=== PATIENT | female | born 1950 | race Asian ===

== ENCOUNTER 2017-09-13 10:50 | Outpatient (CLI) | payer MEDICARE ==
--- NOTE | 2017-09-15 18:23 | Mammography Report ---
DIGITAL SCREENING MAMMOGRAM: 09/13/2017 CLINICAL INDICATION: A 67-year-old for screening. COMPARISON: 04/2016, 10/2014, 06/2013, 05/2011, 03/2010. TECHNIQUE: Routine CC and MLO projections were obtained of the breasts. FINDINGS: The breasts demonstrate heterogeneously dense fibroglandular parenchyma bilaterally. Coarse, typically benign calcifications are present. No suspicious masses, clustered microcalcifications, or regions of architectural distortion are identified. IMPRESSION: BENIGN FINDINGS. RECOMMENDATION: ROUTINE ANNUAL SCREENING UNLESS OTHERWISE CLINICALLY INDICATED. BIRADS category 2 benign findings. STANDARD QUALIFYING STATEMENTS 1. This examination was reviewed with the aid of Computed-Aided Detection (CAD). 2. A negative or benign imaging report should not delay biopsy if clinically suspicious findings are present. Consider surgical consultation if warranted. More than 5% of cancers are not identified by imaging. 3. Dense breasts may obscure an underlying neoplasm. TD: 09/15/2017 18:22
== END 2017-09-13 10:51 | disposition home or self-care (01) ==
LOC: DI.N 10:50
PROVIDERS: ATTEND Physician Assistant Medical
DX: Z12.31 Encounter for screening mammogram for malignant neoplasm of breast (principal)
CPT/HCPCS: 77067

== ENCOUNTER 2017-12-08 08:00 | Outpatient (CLI) | payer MEDICARE, OTHER | END 2017-12-08 23:59 | LOC: LAB.R 08:00 | PROVIDERS: ATTEND Family Medicine | DX: K52.9 Noninfective gastroenteritis and colitis, unspecified (principal) | CPT/HCPCS: 81599; 82270; 82274; 83630; 87045; 87046; 87177; 87209; 87329; 87493 ==

== ENCOUNTER 2018-02-10 14:27 | Outpatient (CLI) | payer MEDICARE, OTHER ==
--- NOTE | 2018-02-11 17:22 | MRI Report ---
Procedure Date: 02/10/2018 Accession Number: [id number] / [id number] Procedure: MRI - Lumbar Spine W/O CPT Code: FULL RESULT: EXAM: MRI LUMBAR SPINE WITHOUT CONTRAST EXAM DATE: 02/10/2018 03:39 PM. CLINICAL HISTORY: Lumbar radiculopathy. COMPARISON: None. TECHNIQUE: Multiplanar, multisequence T1-weighted and fluid-sensitive sequences of the lumbar spine from T12 to S1 without contrast. Other: None. FINDINGS: There is straightening of the normal lumbar lordosis. The conus terminates at T12-L1. There is mild desiccation of the disk spaces throughout the lumbar spine. There is syndesmophyte formation from L1-L2 through L5-S1. There is a mild decrease in the height of the disk at L1-L2, L2-L3, moderate at L3-L4, mild at L4-L5 and moderate at L5-S1. There are multiple disk bulges or disk osteophyte complexes which will be described in greater detail below. The kidneys are without evidence of hydronephrosis. The abdominal aorta is of normal caliber. There is no significant atrophy of the paraspinal musculature or the psoas musculature. There is a mixture of Modic type I and type II endplate degenerative changes within the L1-L2 through L5-S1 endplates. There is minimal fluid density in the superficial space of the lower back likely representing a minimal degree of dependent edema. T12-L1: There is no significant disk bulge, central or foraminal stenosis. The facets are normal. L1-L2: There is no significant disk bulge, central or foraminal stenosis. The facets are normal. L2-L3: There is a minimal disk bulge abutting the sac producing a minimal central canal stenosis. There is mild right and left facet arthropathy. There is mild right and mild to moderate left neural foraminal narrowing. L3-L4: There is a broad-based disk osteophyte complex abutting the sac producing a moderate central canal stenosis. The facets are normal. There is mild to moderate right and left foraminal stenosis. L4-L5: There is a broad-based disk osteophyte complex eccentric to the right entering into the right foraminal and extraforaminal space producing moderate narrowing of the right neural foramen. There is also concomitant moderate ligamentum flavum hypertrophy. There is a moderate central canal stenosis. There is minimal left facet arthropathy. L5-S1: There is mild right and mild to moderate left facet arthropathy. There is a small disk osteophyte complex abutting the sac without significant central canal stenosis. There is mild right and moderate left neural foraminal narrowing. IMPRESSION: 1. There is a minimal central canal stenosis from a minimal disk bulge at L2-L3. 2. There is a moderate central canal stenosis from a broad-based disk osteophyte complex at L3-L4. 3. There is a broad-based disk osteophyte complex eccentric to the right at L4-L5 producing moderate narrowing of the right neural foramen. There is a moderate central canal stenosis. 4. There is a small disk osteophyte complex but without significant central canal stenosis at L5-S1. Comment: The following findings are so common in adults without low back pain that while we report their presence, they must be interpreted with caution and in the context of the clinical situation. (Reference Genevak et al, Spine 2001) Prevalence of findings in patients without low back pain: Disk degeneration (any evidence): 92% Disk desiccation/T2 signal loss: 83% Disk height loss: 56% Disk bulge: 64% Disk protrusion: 32% Annular tear/high intensity zone: 38% RADIA
== END 2018-02-10 14:28 | disposition home or self-care (01) ==
LOC: DI 14:27
PROVIDERS: ATTEND Family Medicine
DX: M54.16 Radiculopathy, lumbar region (principal); M48.061 Spinal stenosis, lumbar region without neurogenic claudication; M25.78 Osteophyte, vertebrae
CPT/HCPCS: 72148

== ENCOUNTER 2019-05-23 10:46 | Outpatient (CLI) | payer MEDICARE, OTHER ==
[2019-05-23 12:39] LABS: CREATININE 2.3 mg/dL (0.4-1.0)
[2019-05-23 12:47] LABS: CREATININE,URINE 90.2 mg/dL; MICROALBUM/CREATININE RATIO,UR 353.7 ug/mg (<30.0); MICROALBUMIN,URINE 31.9 mg/dL (0-300.0)
[2019-05-23 13:25] LABS: HB2 TOTAL 10.9 g/dL; HEMOGLOBIN A1C 0.64 g/dL; HEMOGLOBIN A1C % 7.5 % (4.6-6.2)
== END 2019-05-23 23:59 | disposition home or self-care (01) ==
LOC: LAB.N 10:46
PROVIDERS: ATTEND Family Medicine
DX: E11.9 Type 2 diabetes mellitus without complications (principal)
CPT/HCPCS: 36415; 80048; 82043; 82570; 83036

== ENCOUNTER 2019-08-15 08:00 | Outpatient (CLI) | payer MEDICARE, OTHER ==
[2019-08-15 19:06] LABS: HB2 TOTAL 10.9 g/dL; HEMOGLOBIN A1C 0.69 g/dL; HEMOGLOBIN A1C % 7.9 % (4.6-6.2)
== END 2019-08-15 08:01 | disposition home or self-care (01) ==
LOC: LAB.N 08:00
PROVIDERS: ATTEND Family Medicine
DX: E11.9 Type 2 diabetes mellitus without complications (principal)
CPT/HCPCS: 36415; 83036

== ENCOUNTER 2020-04-29 12:51 | Outpatient (CLI) | payer MEDICARE, OTHER ==
--- NOTE | 2020-04-29 14:53 | XRAY Report ---
PROCEDURE: Shoulder 3 View LT INDICATIONS: LEFT SHOULDER PAIN TECHNIQUE: 3 views of the shoulder were acquired. COMPARISON: None. FINDINGS: Bones: No fractures or dislocations. No suspicious bony lesions. Visualized ribs appear intact. Soft tissues: No suspicious soft tissue calcifications. IMPRESSION: No trauma found. There is a small degree of degenerative osteoarthritic change at the AC joint, expected for age. No acute disease. Reviewed by: Thom Witt MD on 04/29/2020 2:51 PM PDT Approved by: Thom Witt MD on 04/29/2020 2:51 PM PDT Station ID: [id number]
== END 2020-04-29 23:59 | disposition home or self-care (01) ==
LOC: DI.WCP 12:51
PROVIDERS: ATTEND Family Medicine
DX: M19.012 Primary osteoarthritis, left shoulder (principal)

== ENCOUNTER 2020-06-05 08:00 | Outpatient (CLI) | payer MEDICARE, OTHER | END 2020-06-05 23:59 | disposition home or self-care (01) | LOC: LAB.R 08:00 | PROVIDERS: ATTEND Internal Medicine | DX: Z12.11 Encounter for screening for malignant neoplasm of colon (principal) | CPT/HCPCS: 82274 ==

== ENCOUNTER 2020-08-20 12:58 | Outpatient (CLI) | payer MEDICARE, OTHER ==
--- NOTE | 2020-08-21 12:29 | Mammography Report ---
BILATERAL DIGITAL SCREENING MAMMOGRAM 3D/2D: 08/20/2020 CLINICAL: Routine screening. Comparison is made to exams dated: 09/13/2017 mammogram, 04/13/2016 mammogram, 10/31/2014 mammogram, and 06/20/2013 mammogram - [facility]. The tissue of both breasts is heterogeneously dense. This may lower the sensitivity of mammography. No significant masses, calcifications, or other findings are seen in either breast. There has been no significant interval change. IMPRESSION: NEGATIVE There is no mammographic evidence of malignancy. A 1 year screening mammogram is recommended. This exam was interpreted at Station ID: [id number]. NOTE: For mammograms, a report in lay terms will be sent to the patient. Approximately 15% of breast malignancies will not be visualized mammographically. In the management of a palpable breast mass, a negative mammogram must not discourage biopsy of a clinically suspicious lesion. Electronically Signed By: Deny Nguyen M.D. slc/[email or web address]:08/20/2020 17:18:16 ACR BI-RADS Category 1: Negative 3341F PARENCHYMAL PATTERN: (D) - The breast(s) demonstrate(s) heterogeneously dense fibroglandular carlos morton. BI-RADS CATEGORY: (1) - 1 RECOMMENDATION: (ANNUAL) - Recommend routine annual screening mammography. [id number] 1 year screening LATERALITY: (B)
== END 2020-08-20 12:59 | disposition home or self-care (01) ==
LOC: DI 12:58
PROVIDERS: ATTEND Internal Medicine
DX: Z12.31 Encounter for screening mammogram for malignant neoplasm of breast (principal)

== ENCOUNTER 2020-08-20 13:00 | Outpatient (CLI) | payer MEDICARE, OTHER ==
--- NOTE | 2020-08-20 13:59 | DEXA Report ---
PROCEDURE: Dexa Spine and/or Hip INDICATIONS: POST MENOPAUSAL TECHNIQUE: Dual energy x-ray absorptiometry (DXA) was performed on a Page[employer] System. Regions measur ed are the AP Spine, femoral neck, and if needed forearm. COMPARISON: None. FINDINGS: Lumbar Spine: Bone Mineral Density 1.326 g/cm/cm,T score 1.3, normal bone density Left Femoral Neck: Bone Mineral Density 1.042 g/cm/cm, T score 0.3, normal bone density (T score greater or equal to -1.0: NORMAL) (T score from -1.1 to -2.4: OSTEOPENIA) (T score less than or equal to -2.5 to: OSTEOPOROSIS) Impression: Normal bone mineral density. Patients with diagnosis of osteoporosis or osteopenia should have regular bone mineral density assess ment. For those eligible for Medicare, routine testing is allowed once every 2 years. Testing frequ ency can be increased for patients who have rapidly progressing disease or for those who are receivin g medical therapy to restore bone mass. Reviewed by: Isaías Nolasco MD on 08/20/2020 1:57 PM PST Approved by: Isaías Nolasco MD on 08/20/2020 1:57 PM PST Station ID: [id number]
== END 2020-08-20 13:01 | disposition home or self-care (01) ==
LOC: DI 13:00
PROVIDERS: ATTEND Internal Medicine
DX: Z78.0 Asymptomatic menopausal state (principal)

== ENCOUNTER 2020-09-06 08:00 | Outpatient (CLI) | payer MEDICARE, OTHER ==
[2020-09-06 20:06] LABS: ESTIMATED AVERAGE GLUCOSE 203 mg/dL (70-100); HEMOGLOBIN A1c% 8.7 % (4.27-6.07)
== END 2020-09-06 23:59 | disposition home or self-care (01) ==
LOC: LAB.WCP 08:00
PROVIDERS: ATTEND Internal Medicine
DX: E11.22 Type 2 diabetes mellitus with diabetic chronic kidney disease (principal)
CPT/HCPCS: 36415; 83036

== ENCOUNTER 2022-04-13 14:59 | Outpatient (CLI) | payer MEDICARE, OTHER ==
--- NOTE | 2022-04-15 10:14 | Mammography Report ---
BILATERAL DIGITAL SCREENING MAMMOGRAM 3D/2D: 04/13/2022 CLINICAL: Routine screening. Comparison is made to exams dated: 08/20/2020 mammogram, 09/13/2017 mammogram, 04/13/2016 mammogram, 10/31 mammogram, 06/20/2013 mammogram, and 05/29/2011 mammogram - [facility]. Both breasts are heterogeneously dense, which may obscure small masses (category c / 51-75% glandula r tissue). No significant masses, calcifications, or other findings are seen in either breast. There has been no significant interval change. IMPRESSION: NEGATIVE There is no mammographic evidence of malignancy. A 1 year screening mammogram is recommended. Based on the Tyrer Cuzick model (a risk assessment model) the patients lifetime risk is 7.2% and her 10 year risk is 5.9%. According to the ACR, ACS, and NCCN guidelines, an annual breast MRI exam tegan g with mammogram is recommended if the patients lifetime risk is 20% or greater. This exam was interpreted at Station ID: [id number]. NOTE: For mammograms, a report in lay terms will be sent to the patient. Approximately 15% of breast malignancies will not be visualized mammographically. In the management of a palpable breast mass, a negative mammogram must not discourage biopsy of a clinically suspicious lesion. Electronically Signed By: Jason [email or web address]/[email or web address]:04/14/2022 09:35:59 ACR BI-RADS Category 1: Negative 3341F PARENCHYMAL PATTERN: (D) - The breast(s) demonstrate(s) heterogeneously dense fibroglandular carlos morton. BI-RADS CATEGORY: (1) - 1 RECOMMENDATION: (ANNUAL) - Recommend routine annual screening mammography. [id number] 1 year screening LATERALITY: (B)
== END 2022-04-13 15:00 | disposition home or self-care (01) ==
LOC: DI.N 14:59
PROVIDERS: ATTEND Internal Medicine
DX: Z12.31 Encounter for screening mammogram for malignant neoplasm of breast (principal)

== ENCOUNTER 2022-04-30 07:48 | Day surgery (SDC) | payer MEDICARE, OTHER ==
--- NOTE | 2022-04-30 07:46 | ANESTHESIA ---
Pre-Anesthesia VS, & Labs - Diagnosis L senile combined cataract - Procedure L extraction cataract w IOL Height: 4 ft 11 in - NPO >8 hours - Is Patient ?: No - Lab Results Lab results reviewed: Yes Home Medications and Allergies Aspirin [Aspirin EC] 81 mg PO DAILY 01/03/19 Felodipine [Felodipine ER] 10 mg PO DAILY 01/03/19 Hydralazine HCl 50 mg PO QID 01/03/19 Insulin Glargine [Lantus Solostar] 10 unit SQ DAILY 01/03/19 Levothyroxine Sodium [Synthroid] 112 mcg PO DAILY 01/03/19 Losartan Potassium 100 mg PO DAILY 01/03/19 Metoprolol Succinate [Toprol Xl] 75 mg PO DAILY 01/03/19 Simvastatin 40 mg PO DAILY 01/03/19 allopurinoL [Allopurinol] 100 mg PO BID 01/03/19 hydroCHLOROthiazide [Hydrochlorothiazide] 25 mg PO DAILY 01/03/19 Allergies/Adverse Reactions: Allergies Allergy/AdvReac Type Severity Reaction Status Date / Time celecoxib [From Celebrex] Allergy Severe Unknown Verified 04/30/22 06:19 ELIJAH Inhibitors Allergy Mild Unknown Verified 04/30/22 06:19 Anes History & Medical History - Anesthetic History Anesthesia Complications: reports: No previous complications Family history of Anesthesia Complications: Denies Family history of Malignant Hyperthermia: Denies - Medical History Cardiovascular: reports: Hypertension, High cholesterol Pulmonary: reports: None Gastrointestinal: reports: GERD Urinary: reports: None Neuro: reports: None Musculoskeletal: reports: Osteoarthritis Endocrine/Autoimmune: reports: Type 2 diabetes, HyPOthyroidism Blood Disorders: reports: None Skin: reports: None Smoking Status: Never smoker - Surgical History Eyes Ears Nose Throat (EENT): reports: Cataracts Gynecologic: reports: section Exam General: Alert, Oriented x3, Cooperative Dental: Dentures full Upper, Dentures full Lower Mouth Openin Fingerbreadth Neck Mobility: Normal Mallampati classification: II Thyromental Distance: 4-6 cm Respiratory: Lungs clear, Normal breath sounds, No respiratory distress Cardiovascular: Regular rate Neurological: Normal speech Mental/Cognitive Status: Alert/Oriented X3, Normal for patient Cognitive Status: Within normal limits Plan Anesthesia Type: MAC Consent for Procedure(s) Verified and Reviewed: Yes Code Status: Attempt Resuscitation ASA classification: 2-Mild systemic disease Is this case an emergency?: No
[~2022-04-30 07:48] MED LIST: CYCLOPENTOLATE 1% OPHTH DROPS 2 ML ONE; KETOROLAC 0.45% OPHTH DROPS ONE; PHENYLEPHRINE 2.5% OPHTH 2 ML DROPS ONE; PROPARACAINE 0.5% OPHTH DROPS 15 ML ONE
[2022-04-30] MEDS ORDERED: TRIAMCIN/MOXIFLOX OPHTHALMIC 0.6 ML VIAL IO ONE ×2 (07:51→08:58)
[2022-04-30] MEDS ORDERED: TIMOLOL 0.5% OPHTH DROPS ONE (07:52)
[2022-04-30] MEDS ORDERED: BSS/LIDOCAINE/EPINEPHRINE 1 ML VIAL ONE ×2 (07:52→08:20)
[2022-04-30] MEDS ORDERED: EPINEPHrine 1 MG/ML AMP ONE (07:52)
[2022-04-30] MEDS ORDERED: BRIMONIDINE 0.2% OPHTH DROPS 5 ML ONE (07:52)
[2022-04-30] MEDS ORDERED: VANCOMYCIN OPHTH (TOPICAL) 10 MG/ML SYRINGE ONE ×2 (07:52→08:20)
[2022-04-30] MEDS ORDERED: LACTATED RINGERS 1,000 ML IV ONE ×2 (08:08→09:01)
[2022-04-30] MEDS ORDERED: MIDAZOLAM 2 MG/2 ML VIAL ONE (08:30)
[2022-04-30] MEDS ORDERED: EPINEPHrine 1 MG/ML AMP IR ONE (08:56)
[2022-04-30] MEDS ORDERED: BRIMONIDINE 0.2% OPHTH DROPS 5 ML OPTH ONE (08:56)
[2022-04-30] MEDS ORDERED: TIMOLOL 0.5% OPHTH DROPS OPTH ONE (08:57)
[2022-04-30] MEDS ORDERED: BSS/LIDOCAINE/EPINEPHRINE 1 ML SYRINGE IO ONE (08:57)
[2022-04-30] MEDS ORDERED: PROPARACAINE 0.5% OPHTH DROPS 15 ML EACHEYE ONE (08:58)
[2022-04-30] MEDS ORDERED: VANCOMYCIN OPHTH (TOPICAL) 10 MG/ML SYRINGE TOP ONE (08:58)
[2022-04-30 09:13] VITALS: BP 150/46
--- NOTE | 2022-04-30 09:42 | ANESTHESIA POST OP EVALUATION ---
Anesthesia Post Eval - Post Anesthesia Eval Vitals: Last Vital Signs Temp 36.3 C L 04/30/22 09:02 Pulse 55 L 04/30/22 09:11 Resp 17 04/30/22 09:11 BP 150/46 H 04/30/22 09:11 Pulse Ox 99 04/30/22 09:11 O2 Flow Rate 0 04/30/22 08:08 CV Function Including HR & BP: Stable Pain Control: Satisfactory Nausea & Vomiting: Negative Mental Status: Baseline Respiratory Status: Airway Patent Hydration Status: Satisfactory Anesthesia Complications: None
--- NOTE | 2022-04-30 10:00 | OPERATIVE REPORT ---
Operative Report - Other Other Information/Narrative: Date of Surgery: 04/30/22 Preop Dx: Visually significant cataract left eye. Cataract surgery was performed in the right eye on . Postop Dx: Same Procedure: Phacoemulsification with posterior chamber intraocular lens implant left eye Surgeon: Dr. Lionel Reyes Anesthesia: Monitored anesthesia care Complications: None Operative Indications: This is a 72-year-old F with progressive vision loss in the left eye due to 2+ nuclear sclerotic and 2+ cortical cataract. Best corrected visual acuity was 20/40 with glare to 20/50 vision in the left eye. Indications for surgery were: - Overall decrease in vision - Difficulty seeing street signs - Difficulty driving in low light or at night - Difficulty driving at night because of headlights from other vehicles - Difficulty with glare or bright lights in any situation The patient was consented at length concerning the risks and benefits of cataract surgery after which the patient expressed a desire to proceed with surgery. Operative Procedure: The patient was taken into OR#3 and placed under monitored anesthesia care. A surgical time-out was conducted confirming correct patient, correct procedure, and correct surgical site. The patient was given topical anesthesia and then prepped and draped in the usual sterile fashion. The eye was entered at the 6 and 3 oclock positions. Intracameral Shugarcaine was injected into the anterior chamber followed by a dispersive viscoelastic. A continuous-tear curvilinear capsulorhexis was performed. The nucleus was hydrodissected and phacoemulsified. The cortex was evacuated using automated infusion and aspiration. A cohesive viscoelastic was injected into the capsular bag and a 16.5 diopter intraocular lens was inserted into the bag. Infusion and aspiration were used to evacuate the viscoelastic materials from the eye. The wounds were hydrated and the eye inflated to physiologic pressure using balanced salt solution. Approximately 0.25ml of a mixture of triamcinolone and moxifloxacin was injected trans-sclerally into the vitreous in the inferotemporal quadrant using a 30 gauge cannula. An additional 0.55ml of a mix ture of triamcinolone and moxifloxacinwas injected subconjunctivally in the superior quadrant for infection and inflammation prophylaxis. Wound integrity was checked with Weck-Cate sponges. The patient was taken from the operating room in good condition and given post-op instructions.
== END 2022-04-30 07:49 | disposition home or self-care (01) ==
LOC: SDS 07:48
PROVIDERS: ATTEND Ophthalmology
DX: E11.36 Type 2 diabetes mellitus with diabetic cataract (principal); H25.812 Combined forms of age-related cataract, left eye; E03.9 Hypothyroidism, unspecified; Z79.4 Long term (current) use of insulin; Z98.41 Cataract extraction status, right eye
CPT/HCPCS: 66984; A9270; J3490; J7120

== ENCOUNTER 2022-09-21 14:29 | Outpatient (CLI) | payer MEDICARE, OTHER ==
--- NOTE | 2022-09-21 13:32 | XRAY Report ---
PROCEDURE: Knee 4 View RT INDICATIONS: RIGHT KNEE PAIN TECHNIQUE: 4 views of the right knee(s) were acquired. COMPARISON: None. FINDINGS: Bones: No fractures or dislocations. No suspicious bony lesions. There is moderate to severe bila teral medial compartment narrowing, slightly more prominent on the left. There is mild to moderate bi lateral lateral as well as moderate right patellofemoral compartment narrowing. Particular osteophyte s are most prominent particularly in the left medial compartment. No erosions are identified. Soft tissues: No joint effusion. No suspicious soft tissue calcifications. IMPRESSION: Tricompartmental arthritic change most severe on the left medially as above. Reviewed by: Juju Escobedo MD on 09/21/2022 1:31 PM PDT Approved by: Juju Escobedo MD on 09/21/2022 1:31 PM PDT Station ID: [id number]
== END 2022-09-21 14:30 | disposition home or self-care (01) ==
LOC: DI.WOS 14:29
PROVIDERS: ATTEND Physician Assistant Surgical
DX: M17.11 Unilateral primary osteoarthritis, right knee (principal)